=== PATIENT | female | born 1995 | race Caucasian/White ===

== ENCOUNTER → 2018-02-18 | Outpatient (CLI) | payer OTHER | END | disposition home or self-care (01) | LOC: RAD 11:13 | PROVIDERS: ATTEND Family Medicine | DX: J02.9 Acute pharyngitis, unspecified (principal); J40 Bronchitis, not specified as acute or chronic | CPT/HCPCS: 71046 ==

== ENCOUNTER 2018-03-07 15:21 | Outpatient (CLI) | payer OTHER | END 2018-03-07 23:59 | disposition home or self-care (01) | LOC: RAD 15:21 | PROVIDERS: ATTEND Family Medicine | DX: J18.9 Pneumonia, unspecified organism (principal) | CPT/HCPCS: 71046 ==

== ENCOUNTER 2020-04-22 18:50 | Emergency (ER) | payer MEDICAID ==
[~2020-04-22] VITALS: Ht 165.1 cm; Wt 89.0 kg
--- NOTE | 2020-04-22 20:13 | NUR ---
PT TO ROOM FROM LOBBY
--- NOTE | 2020-04-22 20:15 | NUR ---
INITIAL PT CONTACT. PT PRESENTS TO ED C/O ABDOMINAL PAIN AROUND BELLY BUTTON/EPIGASTRIC AREA, "I FEEL A BUMP" X4 DAYS, DENIES VOMITING, REPORTS CONSTIPATION X2DAYS. "I HAVE A LITTLE BIT OF NAUSEA TOO". PT SITTING UPRIGHT ON EDGE OF TAYLOR SANTOS, ESTIVEN. PT DENIES ANY ADDITIONAL NEEDS AT THIS TIME. CALL [facility]ONG[facility] WITHIN REACH. AWAITING ERP.
--- NOTE | 2020-04-22 20:40 | NUR ---
ERP AT BEDSIDE
[2020-04-22] MEDS ORDERED: ACETAMINOPHEN 325 MG TABLET ONE (20:46)
[2020-04-22] MEDS ORDERED: ACETAMINOPHEN 325 MG TABLET PO ONE (21:00)
[2020-04-22 21:03] VITALS: BP 104/47
--- NOTE | 2020-04-22 21:03 | NUR ---
PT SITTING UPRIGHT ON EDGE OF TAYLOR SANTOS VSS. PT DENIES ANY ADDITIONAL NEEDS AT THIS TIME. CALL LIGHT AND BELONGINGS WITHIN REACH.
[2020-04-22 21:15] LABS: BASOPHILS % (AUTO) 1 % (0-1); EOSINOPHILS % (AUTO) 3 % (1-7); LYMPHOCYTES % (AUTO) 36 % (22-44); MEAN CORPUSCULAR HGB CONC 32.8 g/dL (32.4-35.8); MEAN PLATELET VOLUME 11.2 fL (7.4-10.4); MONOCYTES % (AUTO) 7 % (2-9); NEUTROPHILS % (AUTO) 54 % (42-75); PLATELET COUNT 190 x10^3/uL (130-400); RED BLOOD COUNT 4.82 x10^6/uL (3.82-5.3); RED CELL DISTRIBUTION WIDTH 13.2 % (9.6-15.2)
[2020-04-22 21:20] LABS: MD NO
[2020-04-22 21:28] LABS: MICROSCOPIC INDICATED
[2020-04-22 21:28] LABS: ALANINE AMINOTRANSFERASE 43 U/L (12-78); ALBUMIN 4.2 g/dL (3.4-5.0); ANION GAP 7 mmol/L (5-15); CHLORIDE 108 mmol/L (98-107)
[2020-04-22 21:33] LABS: ALKALINE PHOSPHATASE 133 U/L (45-117); BILIRUBIN,TOTAL 0.6 mg/dL (0.2-1.0); CREATININE 0.73 mg/dL (0.55-1.02); TOTAL PROTEIN 8.4 g/dL (6.4-8.2)
[2020-04-22] MEDS ORDERED: ONDANSETRON ODT 4 MG ONE (21:37)
--- NOTE | 2020-04-22 21:46 | NUR ---
PT C/O NAUSEA, ERP AWARE. MEDICATED PER EMAR
[2020-04-22] MEDS ORDERED: ONDANSETRON ODT 4 MG PO ONE (22:00)
== END 2020-04-22 23:21 | disposition home or self-care (01) ==
LOC: ED 21:36
DX: K59.00 Constipation, unspecified (principal); R10.33 Periumbilical pain; R11.0 Nausea
CPT/HCPCS: 36415; 74021; 80053; 81001; 83690; 84703; 85025; 87086; 99284; Q0162